=== PATIENT | male | born 1990 | race African-American/Black ===

== ENCOUNTER 2017-09-24 11:44 | Emergency (ER) | payer SELFPAY | END 2017-09-24 12:47 | disposition home or self-care (01) | LOC: ER 12:47 | DX: J40 Bronchitis, not specified as acute or chronic (principal) | CPT/HCPCS: 99283 ==

== ENCOUNTER 2017-11-11 16:13 | Emergency (ER) | payer SELFPAY | END 2017-11-11 16:43 | disposition home or self-care (01) | LOC: ER 16:13 | DX: J20.9 Acute bronchitis, unspecified (principal) | CPT/HCPCS: 99283 ==

== ENCOUNTER 2018-02-01 11:03 | Emergency (ER) | payer SELFPAY | END 2018-02-01 11:35 | disposition home or self-care (01) | LOC: ER 11:35 | DX: J20.9 Acute bronchitis, unspecified (principal); J02.9 Acute pharyngitis, unspecified | CPT/HCPCS: 99283 ==

== ENCOUNTER 2018-07-08 12:31 | Emergency (ER) | payer SELFPAY ==
[~2018-07-08] VITALS: Ht 172.7 cm; Wt 86.2 kg
[~2018-07-08 12:31] MED LIST: AZIT250T PO; AZIT250T6 PO; BENZ100C PO; ERYT1OIN6 LEFTEYE; HYDR-3164 PO; PRED20TA PO; PRED50TA PO
[2018-07-08 13:12] VITALS: BP 126/87
[2018-07-08] MEDS ORDERED: BENZ100C PO (13:26)
--- NOTE | 2018-07-08 13:26 | PHYS DOC ---
Past Medical History Past Medical History: No Pertinent History Past Surgical History: Other Additional Past Surgical Histo: right wrist surgery Alcohol Use: Occasionally Drug Use: None Adult General Chief Complaint Chief Complaint: FLU SYMPTOM HPI HPI Patient is a 27 year old AA male who presents to the emergency Department today with complaints of congestion and a cough for the last 2 days. He denies any nausea, vomiting, diarrhea, ear pain, headache, or rash. Patient states that at times he feels like he is going to vomit when he is coughing. He also states that his throat has been a little sore. His temperature at home was 98.7 axillary, he denies any fever above that. Review of Systems Review of Systems Constitutional: reports fatigue and tactile fever Eyes: Denies change in visual acuity, redness, or eye pain [] HENT: reports nasal congestion and mild sore throat [] Respiratory: reports drycough, denies wheezing or shortness of breath [] Cardiovascular: No additional information not addressed in HPI [] GI: Denies abdominal pain, nausea, vomiting, or diarrhea [] Musculoskeletal: Denies back pain or joint pain [] Integument: Denies rash or skin lesions [] Neurologic: Denies headache, focal weakness or sensory changes [] All other systems were reviewed and found to be within normal limits, except as documented in this note. Allergies Allergies Allergies Coded Allergies Type Severity Reaction Last Updated Verified No Known Drug Allergies 11/30/15 No Physical Exam Physical Exam Constitutional: Well developed, well nourished, no acute distress, non-toxic appearance. [] HENT: Normocephalic, atraumatic, bilateral external ears normal, bilateral TMs normal, tonsils 1+ bilat normal, oropharynx moist, no oral exudates, nose normal. [] Eyes: PERRLA, conjunctiva normal, no discharge. [] Neck: Normal range of motion, no tenderness, supple, no stridor. [] Cardiovascular:Heart rate regular rhythm, no murmur [] Lungs & Thorax: Bilateral breath sounds clear to auscultation [] Skin: Warm, dry, no erythema, no rash. [] Extremities: No cyanosis, no clubbing, ROM intact, no edema. [] Neurologic: Alert and oriented X 3, normal motor function, normal sensory function, no focal deficits noted. [] Psychologic: Affect normal, judgement normal, mood normal. [] Current Patient Data Vital Signs Vital Signs Date Time Temp Pulse Resp B/P (MAP) Pulse Ox O2 Delivery O2 Flow Rate FiO2 07/08/18 13:12 98.4 100 16 126/87 (100) 96 Room Air 98.4 EKG EKG [] Radiology/Procedures Radiology/Procedures [] Course & Med Decision Making Course & Med Decision Making Pertinent Labs and Imaging studies reviewed. (See chart for details) Dx: URI prescription written for mally edwards. Follow up with PCP in 1-2 days, return to ER if sx worsen. Patient verbalized an understanding of home care, medications, follow-up, and return to ED instructions and was in agreement with the plan of care. [] Dragon Disclaimer Dragon Disclaimer This electronic medical record was generated, in whole or in part, using a voice recognition dictation system. Departure Departure Impression: Primary Impression: Upper respiratory infection Disposition: HOME, SELF-CARE Condition: STABLE Referrals: NINA ORTEGA MD (PCP) Patient Instructions: Upper Respiratory Infection, Adult, [id number] Additional Instructions: Fill prescription(s) and use as directed. Cool mist humidifier in room at bedtime. Tylenol or ibuprofen prn pain/fever. Increase clear fluids. Avoid triggers such as smoke, fragrance, dust, and pollen. Follow-up with your primary care doctor in 1-2 days, return to ER if symptoms worsen. Scripts Benzonatate (TESSALON PERLE) 100 Mg Capsule 1 CAP PO TID PRN for COUGH, #21 CAP 0 Refills Prov: FREDO OJEDA WEATHERIZATION INSTALLER 07/08/18 Problem Qualifiers Primary Impression: Upper respiratory infection URI type: unspecified URI Qualified Codes: J06.9 - Acute upper respiratory infection, unspecified FREDO OJEDA WEATHERIZATION INSTALLER Jul 08, 2018 13:26
== END 2018-07-08 13:33 | disposition home or self-care (01) ==
LOC: ER 12:31
DX: J06.9 Acute upper respiratory infection, unspecified (principal)
CPT/HCPCS: 99283

== ENCOUNTER 2018-10-19 16:05 | Emergency (ER) | payer SELFPAY ==
[~2018-10-19] VITALS: Ht 172.7 cm; Wt 93.0 kg
[2018-10-19 17:00] VITALS: BP 158/88
[2018-10-19 18:17] LABS: INFLUENZA A PATIENT NEGATIVE (NEGATIVE); INFLUENZA B PATIENT NEGATIVE (NEGATIVE)
--- NOTE | 2018-10-19 18:22 | PHYS DOC ---
Past Medical History Past Medical History: No Pertinent History (JARED ROSEBRYAN Colunga APRN) Past Surgical History: Other Additional Past Surgical Histo: right wrist surgery (MILTONTESHABRYAN Colunga APRN) Alcohol Use: Occasionally Drug Use: None (JARED ROSEBRYAN Colunga APRN) Adult General Chief Complaint Chief Complaint: COUGH HPI HPI Patient is a 27 year old male who presents with a cough x 2 days. He states that he has seen some flecks of blood. He denies fever or productive cough. He denies night sweats or weight loss. (TESHA ROSE VICE PRESIDENT TALENT MANAGEMENT) Review of Systems Review of Systems Constitutional: Denies fever or chills [] Eyes: Denies change in visual acuity, redness, or eye pain [] HENT: Denies nasal congestion or sore throat [] Respiratory: See HPI Cardiovascular: No additional information not addressed in HPI [] GI: Denies abdominal pain, nausea, vomiting, bloody stools or diarrhea [] : Denies dysuria or hematuria [] Musculoskeletal: Denies back pain or joint pain [] Integument: Denies rash or skin lesions [] Neurologic: Denies headache, focal weakness or sensory changes [] Endocrine: Denies polyuria or polydipsia [] All other systems were reviewed and found to be within normal limits, except as documented in this note. (TESHA ROSE Keanu VILLALPANDO) Allergies Allergies Allergies Coded Allergies Type Severity Reaction Last Updated Verified No Known Drug Allergies 11/30/15 No (REED CHURCH MD) Physical Exam Physical Exam Constitutional: Well developed, well nourished, no acute distress, non-toxic appearance. [] HENT: Normocephalic, atraumatic, bilateral external ears normal, oropharynx moist, no oral exudates, nose normal. [] Eyes: PERRLA, EOMI, conjunctiva normal, no discharge. [] Neck: Normal range of motion, no tenderness, supple, no stridor. [] Cardiovascular:Heart rate regular rhythm, no murmur [] Lungs & Thorax: Bilateral breath sounds clear to auscultation [] Abdomen: Bowel sounds normal, soft, no tenderness, no masses, no pulsatile masses. [] Skin: Warm, dry, no erythema, no rash. [] Back: No tenderness, no CVA tenderness. [] Extremities: No tenderness, no cyanosis, no clubbing, ROM intact, no edema. [] Neurologic: Alert and oriented X 3, normal motor function, normal sensory function, no focal deficits noted. [] Psychologic: Affect normal, judgement normal, mood normal. [] (TESHA ROSE APRN) Current Patient Data Lab Values Laboratory Tests Test 10/19/18 17:25 Influenza Type A Antigen Negative (NEGATIVE) Influenza Type B Antigen Negative (NEGATIVE) (REED CHURCH MD) EKG EKG [] (TESHA ROSE APRN) Radiology/Procedures Radiology/Procedures [] (TESHA ROSE APRN) Course & Med Decision Making Course & Med Decision Making Pertinent Labs and Imaging studies reviewed. (See chart for details) [] (TESHA ROSE APRN) Course & Med Decision Making Staff Physician Addendum: I was working in the ER during the course of this patient's visit. I was available for consultation as needed, but I was not directly involved in the care of this patient. (REED CHURCH MD) Dragon Disclaimer Dragon Disclaimer This electronic medical record was generated, in whole or in part, using a voice recognition dictation system. (TESHA ROSE APRN) Departure Departure Impression: Primary Impression: Upper respiratory infection Disposition: 01 HOME, SELF-CARE Condition: STABLE Referrals: NINA ORTEGA MD (PCP) Patient Instructions: Upper Respiratory Infection, Adult Additional Instructions: Increase fluids and rest. You may take [id number] cough and cold medications for symptom relief. Follow-up with your primary care provider in one week if not improving or return to the emergency department if worsening. TESHA ROSE APRN Oct 19, 2018 18:22 REED CHURCH MD January 12, 2019 18:15
== END 2018-10-19 18:30 | disposition home or self-care (01) ==
LOC: ER 16:05
DX: J06.9 Acute upper respiratory infection, unspecified (principal)
CPT/HCPCS: 87804; 99283

== ENCOUNTER 2019-08-26 22:35 | Emergency (ER) | payer SELFPAY ==
[~2019-08-26] VITALS: Ht 172.7 cm; Wt 93.0 kg
[2019-08-27 00:20] LABS: INFLUENZA A PATIENT NEGATIVE (NEGATIVE)
[2019-08-27 00:21] LABS: INFLUENZA B PATIENT POSITIVE (NEGATIVE)
[2019-08-27 02:10] VITALS: BP 149/80
[2019-08-27] MEDS ORDERED: OSEL75CA PO (02:40)
--- NOTE | 2019-08-27 02:40 | PHYS DOC ---
Past Medical History Past Medical History: No Pertinent History Past Surgical History: Other Additional Past Surgical Histo: right wrist surgery Alcohol Use: Occasionally Drug Use: None Adult General Chief Complaint Chief Complaint: COUGH HPI HPI 28-year-old presents to the emergency department with complaints of cough, nausea, vomiting, fever, headache. The symptoms and ongoing 2 days. She states she's taken [id number] medications without significant relief. He presents today for further evaluation. Nothing makes his symptoms worse, nothing makes his symptoms better All other ROS negative unless documented in HPI Review of Systems Review of Systems See Above Current Medications Current Medications Current Medications Medications (Trade) Dose Ordered Sig/Cliff Start Time Stop Time Status Last Admin Dose Admin Acetaminophen (Tylenol) 1,000 mg 1X ONCE 08/27/19 03:00 08/27/19 03:01 08/27/19 02:32 1,000 MG Ibuprofen (Motrin) 800 mg 1X ONCE 08/27/19 03:00 08/27/19 03:01 08/27/19 02:32 800 MG Allergies Allergies Allergies Coded Allergies Type Severity Reaction Last Updated Verified No Known Drug Allergies 11/30/15 No Physical Exam Physical Exam See Above Constitutional: Well developed, well nourished, no acute distress, non-toxic appearance. [] HENT: Normocephalic, atraumatic, bilateral external ears normal, oropharynx moist, no oral exudates, nose normal. [] Eyes: PERRLA, EOMI, conjunctiva normal, no discharge. [] Neck: Normal range of motion, no tenderness, supple, no stridor. [] Cardiovascular:Heart rate regular rhythm, no murmur [] Lungs & Thorax: Bilateral breath sounds clear to auscultation [] Abdomen: Bowel sounds normal, soft, no tenderness, no masses, no pulsatile masses. [] Skin: Warm, dry, no erythema, no rash. [] Extremities: No tenderness, no edema. [] Neurologic: Alert and oriented X 3, no focal deficits noted. [] Psychologic: Affect normal, judgement normal, mood normal. [] Current Patient Data Vital Signs Vital Signs Date Time Temp Pulse Resp B/P (MAP) Pulse Ox O2 Delivery O2 Flow Rate FiO2 08/27/19 02:10 102.5 120 18 149/80 (103) 95 Room Air 102.5 Lab Values Laboratory Tests Test 08/26/19 23:54 Influenza Type A Antigen Negative (NEGATIVE) Influenza Type B Antigen Positive (NEGATIVE) EKG EKG [] Radiology/Procedures Radiology/Procedures [] Course & Med Decision Making Course & Med Decision Making Pertinent Labs and Imaging studies reviewed. (See chart for details) []28-year-old presents to the emergency department with complaints of cough, nausea, vomiting, fever, headache. The symptoms and ongoing 2 days. She states she's taken [id number] medications without significant relief. He presents today for further evaluation. Nothing makes his symptoms worse, nothing makes his symptoms better Influenza + Patient requesting tamiflu Symptomatic treatment Return precautions provided Dragon Disclaimer Dragon Disclaimer This electronic medical record was generated, in whole or in part, using a voice recognition dictation system. Departure Departure Impression: Primary Impression: Influenza Disposition: 01 HOME, SELF-CARE Condition: STABLE Referrals: NINA ORTEGA MD (PCP) Patient Instructions: Influenza Virus Vaccine injection (Fluarix) Additional Instructions: Recommend follow up with PCP 3 - 5 days Return to the ER with worsening symptoms, intractable pain, fever, altered mental status Tylenol/Motrin as needed for pain Take tamiflu as prescribed Scripts Oseltamivir Phosphate (TAMIFLU) 75 Mg Capsule 1 CAP PO BID, #10 CAP Prov: DARBY WADE MD 08/27/19 DARBY WADE MD Aug 27, 2019 02:40
[2019-08-27] MEDS ORDERED: ACETAMINOPHEN 500 MG TABLET PO ONE (03:00)
[2019-08-27] MEDS ORDERED: IBUPROFEN 400 MG TABLET. PO ONE (03:00)
== END 2019-08-27 02:42 | disposition home or self-care (01) ==
LOC: ER 22:35
DX: J10.1 Influenza due to other identified influenza virus with other respiratory manifestations (principal); R51 Headache; R11.2 Nausea with vomiting, unspecified; R50.9 Fever, unspecified; Z98.890 Other specified postprocedural states
CPT/HCPCS: 87804; 99284